=== PATIENT | female | born 1945 | race Caucasian/White ===

== ENCOUNTER 2024-11-13 10:57 | Inpatient (IN) ==
[2024-11-13] MEDS ORDERED: ZANAFLEX PO PRN (13:57)
[2024-11-13] MEDS ORDERED: XOPENEX 1.25 MG/3 ML NEBULE NEB PRN (13:57)
[2024-11-13] MEDS ORDERED: AMBIEN PO PRN (13:57)
[2024-11-13] MEDS: PEPCID TAB 20 MG PO SCH (14:00)
[2024-11-13 15:58] VITALS: BMI 35.2
[2024-11-13] MEDS: LASIX PO SCH (17:55)
[2024-11-13] MEDS: AMARYL TAB 4 MG PO SCH (17:55)
--- NOTE | 2024-11-13 19:24 | PT/OTEVAL ---
PT/OT OBJECTIVES - HISTORY Prescription: OT Consult Diagnosis: Weakness, acute renal failure. Precautions: Fall risk PMH: HTN, CAD, DM, CKD, breast cancer. Prior Level of Function: Independent Other: Per pt report, pt lives alone in a 1 story home with 2 steps and no HR. Pt is (I) with ADLs and IADLs. Pt has 4 children who take turns to check in on her. DME includes rollator, RW and a potty chair. History of Present Illness: Pt is a 79 year old female who came to this hospital for swingbed. Per documentation pt was initially admitted to [facility] due to family calling EMS because she was having weakness and a fever, secondary to AMS, weakness, acute on Chronic kidney injury and rhabdomyolysis. Pt fell in her home in September and has some reported broken ribs as well as facial fx for which she is suppost to follow up with a dr in [place]. Caregiver arrived in the morning and pt did not answer the door, family was called to let them in. Upon entering the home pt was found sitting on the metal bed frame. Daughter stated that her mother told her the mattress slipped when she was getting up and she slid on to the frame. Denies falling. It is unknown for how long she has been on the frame, but it was at least 12 hours. Daughter reports she was fine the day before as she was shelling peanuts. Pt came to this hospital for swingbed, as she continues to be weak and needs rehab to improve (I) and safety for returning home alone. - COGNITION Mental Status: Alert, Name Communication Status: Verbal Ability to Follow Directions: 2 Step Affect: Calm - PAIN back pain Pain Scale: Moderate Comments: When sitting on commode. - BED MOBILITY Rolling: Minimal Scooting: Minimal - TRANSFERS Supine to Sit: Minimal Sit to Stand: Minimal, Moderate Sit to Stand Comment: mod A from commode. Sit or Stand Pivot: Minimal Toileting: Minimal Toileting comment: min A for clothing management. Safety (requires cues for:): Hand Placement Precaution - ADL'S Upper Body ADL: Minimum Lower Body ADL: Moderate Toileting: Minimum Bathing: Moderate Hygeine: Minimum - BALANCE Dynamic Sitting: Good Standing: Fair Balance Comment: F with UE support Static Sitting: Good Standing: Fair Balance Comment: F+ with UE support - NEUROMOTOR/SENSATION Qamar. Upper Ext Sensation: WFL Coordination: WFL - ROM Bilateral UE ROM: WFL - STRENGTH Bilateral UE Strength Number: 3 Other comment: 3+/5 - GAIT Pt. ambulates how many feet?: 100 - TREATMENT Date: 11/13/24 Time: 15:00 Treatment Type: Evaluation Treatment Provided: Therapeutic Activities, Other - TOTAL TREATMENT TIME Total Time: 45 - POST ASSESSMENT Post Assessment Comment: Pt was seen for skilled OT to assess CLOF. Pt was agreeable to participate and able to provide PLOF and hx. Pt requires min A for STS and bed mobility with touch A for AMB with RW and min VC for safety. Pt required touch A for toilet hygiene and min A for clothing management. Pt functionally AMB ~ 100 feet with RW touch A wiht min VC for safety. Pt given time for all tasks. Pt wanted to get back in the bed with min A. Pt had all needs met and call light within reach. Pt demonstrates deficits with ADLs and ADL functional mobility. Pt would benefit from skilled OT services to address ADL deficits to facilitate highest level of ADL function needed for safe d/c planning. - EXIT DISPOSITION Exit Position: BED Call light in reach: Yes PT/OT ASSESSMENT - OT Problem List: Decreased Mobility ADL's, Decreased Safety Aware, Decreased Dressing, Decreased Bathing, Decreased Grooming, Decreased UE Strength, Other - OT GOALS Physical Therapy Technician Goals Days: 20 Mobility for ADL's: Pt to improve functional ADL transfers to set up A and LRAD Safety Awareness: Pt to improve safety awareness to G Dressing: Pt to improve LB dressing to set up A Bathing: Pt to improve overall bathing to set up A Upper Ext. Strength/Use: Pt to improve MMT in BUE by 1 grade Short Term Goals Days: 10 Mobility for ADL's: Pt to improve functional ADL transfers to supv A and LRAD Safety Awareness: Pt to improve safety awareness to F+ Dressing: Pt to improve LB dressing to supv A Bathing: Pt to improve overall bathing to supv A Other: Pt to improve FAT to G - PATIENT GOALS Patient/Family Goals: To go home and feel better Goals Discussed with Patient/Family: Yes Rehabilitation Potential: G to meet stated goals Justification for Potential: To facilitate highest level of ADL function needed for safe d/c planning. Weakness and Barriers: Pain - PLAN Suggested Treatment Plan: Therapeutic Activity, Self Care Training, Neuro Re- education, Therapeutic Ex with HEP, Patient Education, Family Education - FREQUENCY AND DURATION OT: 4x a week for 20 days Expected Continuation of Care at Discharge: Determined on Progress
--- NOTE | 2024-11-13 19:56 | PT/OTEVAL ---
PT/OT OBJECTIVES - HISTORY Prescription: PT Consult Diagnosis: Acute on Chronic Renal Failure, Weakness Precautions: Fall Risk, Decreased Safety Awareness PMH: HTN, CAD, DM, CKD, Hx Breast Cancer, Falls, Hx Coronary Stents Other: Per patient report (no family present in room at time of evaluation): Pt resides at home alone in single story home with 2 steps to enter without a handrail. Pt reports that prior to a fall in September she was independent with all mobility tasks using FWW or rollator as needed "depending on where I'm walking". Pt reports that she has O2 and uses it as needed. Pt reports that she had a fall in September resulting in multiple L rib fractures and L eye fracture and since then her children (4) have been checking in on her frequently. History of Present Illness: Ms. Rivera is a 79 year old female who presented to [facility] ER on 11/09/2024 with chief complaint of weakness after being found at home on metal bed frame and was found to be in renal failure and with rhabdomyolysis. Pt was stabilized medically and unable to safely return home so was transferred to [facility] on the afternoon of 11/13/2024 for swing bed rehab program. - COGNITION Mental Status: Alert, Oriented, Name, Date Communication Status: Verbal Ability to Follow Directions: 2 Step - PAIN back pain Pain Scale: Moderate Comments: When sitting on commode. - BED MOBILITY Rolling: Minimal - TRANSFERS Supine to Sit: Minimal Sit to Stand: Minimal Sit or Stand Pivot: Minimal Safety (requires cues for:): Hand Placement Precaution - BALANCE Dynamic Sitting: Good Standing: Fair Balance Comment: Fair- Static Sitting: Good Standing: Poor - ROM Bilateral LE ROM: WFL Muscle Tone: WFL - STRENGTH Bilateral LE Strength Number: 3 Other comment: 3+/5 - GAIT Pt. ambulates how many feet?: 100 Amount of Assistance Required: Minimal Type of Assistive Device: Rolling Walker - TREATMENT Date: 11/13/24 Time: 17:15 Treatment Type: Evaluation Treatment Provided: Therapeutic Activities - TOTAL TREATMENT TIME Total Time: 45 - POST ASSESSMENT Post Assessment Comment: Pt was found supine in bed in room and agreeable to participation in PT services. Pt was able to provide history and PLOF information. Pt without complaints of pain at rest but was noted with back pain following prolonged sitting on commode. Pt required min assist for bed mobility tasks and functional transfers. Pt able to ambulate for 100ft with FWW and min assist- cues for upright posture and proper foot placement. Pt ambulated on room air and SpO2 noted to be 97%. Review of PT POC and goals. Pt requested to return to bed following session due to being tired. Pt would benefit from continued participation in PT services to address remaining deficits and facilitate highest level of function and safe discharge planning. - EXIT DISPOSITION Exit Position: BED Call light in reach: Yes Bed Alarm On: YES PT/OT ASSESSMENT - PT Problem List: Decreased Bed Mobility, Decreased Transfers, Decreased Gait, Decreased Balance, Decreased Safety, Decreased LE Strength - PT GOALS Short Term Goals Days: 10 Mobility: Pt will peform bed mobility tasks with supervision Transfers: Pt will perform functional transfers with supervision Gait: Pt will ambulate 300ft with FWW with supervision Balance: Pt will increase static standing balance to good Speech Language Specialist Goals Days: 20 Mobility: Pt will perform bed mobility tasks with mod I Transfers: Pt will perform functional transfers with mod I Gait: Pt will ambulate 500ft with rollator with mod I Balance: Pt will increase dynamic standing balance to good ROM/Strength: Pt will increase BLE strength to 5/5 Others: Pt will ascend/descend 2 steps with mod I - OT GOALS Mcc Goals Days: 20 Mobility for ADL's: Pt to improve functional ADL transfers to set up A and LRAD Safety Awareness: Pt to improve safety awareness to G Dressing: Pt to improve LB dressing to set up A Bathing: Pt to improve overall bathing to set up A Upper Ext. Strength/Use: Pt to improve MMT in BUE by 1 grade Short Term Goals Days: 10 Mobility for ADL's: Pt to improve functional ADL transfers to supv A and LRAD Safety Awareness: Pt to improve safety awareness to F+ Dressing: Pt to improve LB dressing to supv A Bathing: Pt to improve overall bathing to supv A Other: Pt to improve FAT to G - PATIENT GOALS Patient/Family Goals: "I want to go home" Goals Discussed with Patient/Family: Yes Rehabilitation Potential: Good to meet stated goals Justification for Potential: Facilitate highest level of function and safe discharge planning - PLAN Suggested Treatment Plan: Bed Mobility Training, Therapeutic Activity, Gait Training, Neuro Re-education, Therapeutic Ex with HEP, Patient Education, Family Education, Other Other comment: Manual Therapy - FREQUENCY AND DURATION PT: 5x per week x 20 days Expected Continuation of Care at Discharge: Home Health
[2024-11-13] MEDS: ZETIA TAB 10 MG PO SCH (20:40)
[2024-11-13] MEDS: LOPRESSOR TAB 50 MG PO SCH (20:40)
[2024-11-13] MEDS: SINGULAIR TAB 10 MG PO SCH (20:40)
[2024-11-13] MEDS: PREDNISONE TAB 10 MG PO SCH (20:40)
[2024-11-13] MEDS: SNACK - Diabetic Appropriate PO SCH (20:41)
[2024-11-13] MEDS: VIBRAMYCIN PO SCH (20:41)
[2024-11-13] MEDS: ZOCOR TAB 20 MG PO SCH (20:41)
[2024-11-14] MEDS: PERCOCET TAB 5/325 MG PO PRN (01:24)
[2024-11-14 05:51] LABS: RED CELL DISTRIBUTION WIDTH 13.1 % (11.6-16.5)
[2024-11-14 05:59] LABS: MEAN PLATELET VOLUME 9.6 fL (7.4-11.0)
[2024-11-14 06:05] LABS: COR CA(FOR HYPOALB) 9.9 mg/dL (8.5-10.1); COR NA(FOR HYPERGLY) 144.0 mmol/L (136-145); CREATININE 1.13 mg/dL (0.55-1.02); eGFR NON BLACK RACES 49.0 (>60)
[2024-11-14 07:20] LABS: BASOPHILS % (MANUAL) 0 % (0-1); METAMYELOCYTES % 1; PLATELET MORPHOLOGY COMMENT NORMAL (NORMAL)
[2024-11-14] MEDS ORDERED: CONSULT PHARMACY - POTASSIUM & MAGNESIUM XX SCH (08:00)
[2024-11-14] MEDS: ASPIRIN EC 81 MG PO SCH (08:44)
[2024-11-14] MEDS: ARIMIDEX PO SCH (08:44)
[2024-11-14] MEDS: APRESOLINE TAB 25 MG PO SCH (08:45)
[2024-11-14] MEDS: COZAAR PO SCH (08:45)
[2024-11-14] MEDS: NORVASC TAB 10 MG PO SCH (08:45)
[2024-11-14] MEDS: K-DUR TAB 20 MEQ PO SCH (08:46)
[2024-11-14] MEDS: MYRBETRIQ ER TAB 25 MG PO SCH (08:47)
[2024-11-14] MEDS: FARXIGA PO SCH (09:10)
[2024-11-14] MEDS: COLACE CAP 100 MG PO PRN (09:34)
[2024-11-14] MEDS: MILK OF MAGNESIA PO PRN (09:34)
[2024-11-14] MEDS: NovoLIN R (or HumuLIN R) SUBCUT PRN (17:22)
[2024-11-14] MEDS: SNACK - Diabetic Appropriate PO SCH (23:31)
--- NOTE | 2024-11-15 08:58 | DR.H&P ---
H&P History & Physical for Day of: H&P Date: 11/14/24 Chief Complaint Chief Complaint: weakness History of Present Illness History of Present Illness: Patient is a 79-year-old female admitted as a swing bed for weakness and falls. This morning she is resting comfortably in bed. No acute events overnight. Labs/imaging: WBC 8.8, hemoglobin 14.6, platelets 220, sodium 143, potassium 3.8, creatinine 1.13, glucose 146. Reviewed home medications and will restart. Physical therapy has been ordered and patient is working with them. Otherwise continue with current treatment plan. Continue to closely monitor and follow-up labs. Family History Family Medical History: Cancer and Coronary Artery Disease Medications Home Medications: Home Medications Medication Instructions Recorded Confirmed Type amlodipine 10 mg tablet 10 mg PO HS 11/13/24 5 History anastrozole 1 mg tablet 1 mg PO QDAY 11/13/24 History dapagliflozin propanediol 10 mg 10 mg PO QDAY 11/13/24 11/13/24 History tablet (Farxiga) ezetimibe 10 mg tablet 10 mg PO .DINNER 11/13/24 History famotidine 20 mg tablet 20 mg PO QDAY 11/13/2411/13 History furosemide 20 mg tablet 20 mg PO BID 11/13/24 History glimepiride 2 mg tablet 2 mg PO BID 11/13/24 5 History hydralazine 25 mg tablet 25 mg PO DAILY 11/13/2410/27 History lidocaine 5 % topical patch 1 patch topical QDAY 11/1311/13/24 History losartan 100 mg tablet 100 mg PO QDAY 11/13/2410/27 History metoprolol tartrate 50 mg tablet 50 mg PO BID 11/13/24 11/13/24 History mirabegron 25 mg tablet,extended 25 mg PO QDAY 5 11/13/24 History release 24 hr (Myrbetriq) montelukast 10 mg tablet 10 mg PO HS 11/13/24 5 History oxycodone-acetaminophen 10 mg-325 1 tab PO Q6H PRN 11/13/24 History mg tablet semaglutide 1 mg/dose (4 mg/3 mL) 1 mg subcut WEEKLY 0 11/13/24 11/13/24 History subcutaneous pen injector (Ozempic) simvastatin 40 mg tablet 40 mg PO QPM 11/13/24 History tizanidine 4 mg tablet 4 mg PO TID PRN 11/13/24 History zolpidem 5 mg tablet 5 mg PO QPM PRN 11/13/24 History Allergies Allergies Allergy/AdvReac Type Severity Reaction Status Date / Time apixaban (From Eliquis) Allergy Unknown Verified 11/13/24 14:04 ketorolac (From Toradol) Allergy Unknown Verified 11/13/24 14:04 niacin Allergy Unknown Verified 11/13/24 14:04 promethazine (From Phenergan) Allergy Unknown Verified 11/13/24 14:04 Labs 11/14/24 05:20 11/14/24 05:20 Labs: Laboratory WBC 8.8 X10^3/uL (3.6-10.0) 11/14/24 05:20 RBC 4.84 X10^6/uL (3.5-5.4) 11/14/24 05:20 Hgb 14.6 g/dL (12.0-16.0) 11/14/24 05:20 Hct 42.5 % (36.0-47.0) 11/14/24 05:20 MCV 87.7 fL (80.0-100.0) 11/14/24 05:20 MCH 30.1 pg (27.0-34.0) 11/14/24 05:20 MCHC 34.4 g/dL (33.0-35.0) 11/14/24 05:20 RDW 13.1 % (11.6-16.5) 11/14/24 05:20 Plt Count 220 X10^3/uL (150.0-450.0) 11/14/24 05:20 Plt Count Comment Adequate (ADEQUATE) 11/14/24 05:20 MPV 9.6 fL (7.4-11.0) 11/14/24 05:20 Neut % (Auto) 81.2 % (42.0-75.0) H 11/14/24 05:20 Lymph % (Auto) 13.3 % (21.0-51.0) L 11/14/24 05:20 [place] % (Auto) 5.2 % (0.0-13.0) 11/14/24 05:20 Eos % (Auto) 0.1 % (0.9-2.9) L 11/14/24 05:20 Baso % (Auto) 0.2 % (0.2-1.0) 11/14/24 05:20 Neut # (Auto) 7.1 x10^3/uL (2.2-4.8) H 11/14/24 05:20 Lymph # (Auto) 1.2 X10^3/uL (1.3-2.9) L 11/14/24 05:20 [place] # (Auto) 0.5 x10^3/uL (0.3-0.8) 11/14/24 05:20 Eos # (Auto) 0.0 x10^3/uL (0.0-0.2) 11/14/24 05:20 Baso # (Auto) 0.0 X10^3/uL (0.0-0.1) 11/14/24 05:20 Absolute Nucleated RBC 0.0 /100WBC 11/14/24 05:20 Total Counted 100 11/14/24 05:20 Neutrophils % (Manual) 86 % (39-76) H 11/14/24 05:20 Lymphocytes % (Manual) 11 % (13-43) L 11/14/24 05:20 Monocytes % (Manual) 2 % (4-9) L 11/14/24 05:20 Eosinophils % (Manual) 0 % (0-6) 11/14/24 05:20 Basophils % (Manual) 0 % (0-1) 11/14/24 05:20 Metamyelocytes % 1 11/14/24 05:20 Plt Morphology Comment Normal (NORMAL) 11/14/24 05:20 RBC Morphology Normal (NORMAL) 11/14/24 05:20 Sodium 143 mmol/L (136-145) 11/14/24 05:20 Corrected Sodium 144 mmol/L (136-145) 11/14/24 05:20 Potassium 3.8 mmol/L (3.5-5.1) 11/14/24 05:20 Chloride 102 mmol/L (98-107) 11/14/24 05:20 Carbon Dioxide 35.6 mmol/L (21-32) H 11/14/24 05:20 BUN 37 mg/dL (7-18) H 11/14/24 05:20 Creatinine 1.13 mg/dL (0.55-1.02) H 11/14/24 05:20 Est GFR (MDRD) Af Amer 60 (>60) 11/14/24 05:20 Est GFR (MDRD) Non-Af 49 (>60) L 11/14/24 05:20 Glucose 146 mg/dL (65-99) H 11/14/24 05:20 POC Glucose (mg/dL) 75 mg/dL (65-99) 11/15/24 05:43 Calcium 9.0 mg/dL (8.5-10.1) 11/14/24 05:20 Corrected Calcium 9.9 mg/dL (8.5-10.1) 11/14/24 05:20 Total Bilirubin 0.80 mg/dL (0.2-1.0) 11/14/24 05:20 AST 108 Units/L (15-37) H 11/14/24 05:20 ALT 102 Units/L (12-78) H 11/14/24 05:20 Alkaline Phosphatase 87 Units/L (46-116) 11/14/24 05:20 Total Protein 6.3 g/dL (6.4-8.2) L 11/14/24 05:20 Albumin 2.9 g/dL (3.4-5.0) L 11/14/24 05:20 Globulin 3.4 g/dL (2.5-4.5) 11/14/24 05:20 Albumin/Globulin Ratio 0.9 Ratio (1.1-2.1) L 11/14/24 05:20 Review of Systems Constitutional: Weakness Eyes: No Symptoms Reported ENT: No Symptoms Reported Respiratory: No Symptoms Reported Cardiovascular: No Symptoms Reported Gastrointestinal: No Symptoms Reported Genitourinary: No Symptoms Reported Musculoskeletal: No Symptoms Reported Skin: No Symptoms Reported Neurological: No Symptoms Reported Physical Exam Vital Signs: Vital Signs Temperature 98.3 F Pulse Rate [Bilateral Radial] 66 Respiratory Rate 18 Blood Pressure [Right Arm] 119/63 O2 Sat by Pulse Oximetry 95 Oriented: Normal Eyes: Normal Ear: Normal Nose: Normal Throat: Normal Respiratory: Clear Throughout Cardiovascular: Normal : Normal Auscultation: Bowel Sounds: Normal Palpation: Normal Tenderness: Normal Skin: Normal Musculoskeletal: Normal Psychiatric: Normal Mood Description: Calm and Appropriate Affect: Normal Speech Pattern: Clear and Appropriate Assessment/Plan (1) Weakness: Status: Acute Plan: Continue PT (2) Falls: Status: Acute Review H&P Reviewed: Yes Patient was examined?: Yes
[2024-11-17 05:36] LABS: MEAN PLATELET VOLUME 9.2 fL (7.4-11.0); RED CELL DISTRIBUTION WIDTH 13.6 % (11.6-16.5)
[2024-11-17 05:49] LABS: COR CA(FOR HYPOALB) 9.8 mg/dL (8.5-10.1); COR NA(FOR HYPERGLY) 144.0 mmol/L (136-145); CREATININE 1.13 mg/dL (0.55-1.02); eGFR NON BLACK RACES 49.0 (>60)
[2024-11-17 06:16] LABS: BAND NEUTROPHILS % 1 % (0-10)
[2024-11-17 06:17] LABS: PLATELET MORPHOLOGY COMMENT NORMAL (NORMAL)
[2024-11-17] MEDS ORDERED: CONSULT PHARMACY - POTASSIUM & MAGNESIUM XX SCH (07:00)
[2024-11-17] MEDS: K-DUR TAB 20 MEQ PO SCH (08:33)
--- NOTE | 2024-11-17 09:34 | PCM.PROG ---
Progress Note Progress Note for Day of Date of Exam: 11/17/24 Subjective Subjective: Patient seen at bedside, no acute events overnight. She is currently admitted as swing bed for generalized weakness. She has been doing well, working with PT/OT. She has been ambulating with a walker. Labs/imaging reviewed: -WBC 10.8 Hgb 15.2 K 3.6 Cr 1.13 - AST/ALT 89/87 Plan: continue swing bed status, PT/OT as tolerated. Continue home medications. Fall precautions. Replace electrolytes as per protocol. CM to check on last day of swing bed. Monitor labs prn. Past Medical Family Social History Allergies: Allergies apixaban (From Eliquis) Allergy (Unknown, Verified 11/13/24 14:04) ketorolac (From Toradol) Allergy (Unknown, Verified 11/13/24 14:04) niacin Allergy (Unknown, Verified 11/13/24 14:04) promethazine (From Phenergan) Allergy (Unknown, Verified 11/13/24 14:04) Vital Signs and I&O's Vital Signs: Vital Signs Temperature 98 F Pulse Rate [Bilateral Radial] 57 Respiratory Rate 19 Blood Pressure [Right Arm] 136/69 O2 Sat by Pulse Oximetry 95 Intake and Output: Intake & Output 11/14/24 11/15/24 11/16/24 11/17/24 23:59 23:59 23:59 23:59 Intake Total 500 / 500 790 / 790 2140 / 2140 120 / 120 Balance 500 / 500 790 / 790 2140 / 2140 120 / 120 Physical Exam Oriented: Normal Eyes: Normal Ear: Normal Nose: Normal Throat: Normal Cardiovascular: Normal Auscultation: Bowel Sounds: Normal Palpation: Normal Tenderness: Normal Skin: Normal Musculoskeletal: Normal Psychiatric: Normal Mood Description: Calm and Appropriate Affect: Normal Speech Pattern: Clear and Appropriate Laboratory and Diagnostics 11/17/24 05:25 11/17/24 05:25 Labs: Laboratory WBC 10.8 X10^3/uL (3.6-10.0) H 11/17/24 05:25 RBC 5.06 X10^6/uL (3.5-5.4) 11/17/24 05:25 Hgb 15.2 g/dL (12.0-16.0) 11/17/24 05:25 Hct 44.6 % (36.0-47.0) 11/17/24 05:25 MCV 88.2 fL (80.0-100.0) 11/17/24 05:25 MCH 30.1 pg (27.0-34.0) 11/17/24 05:25 MCHC 34.2 g/dL (33.0-35.0) 11/17/24 05:25 RDW 13.6 % (11.6-16.5) 11/17/24 05:25 Plt Count 196 X10^3/uL (150.0-450.0) 11/17/24 05:25 Plt Count Comment Adequate (ADEQUATE) 11/17/24 05:25 MPV 9.2 fL (7.4-11.0) 11/17/24 05:25 Neut % (Auto) 84.3 % (42.0-75.0) H 11/17/24 05:25 Lymph % (Auto) 10.8 % (21.0-51.0) L 11/17/24 05:25 [place] % (Auto) 4.3 % (0.0-13.0) 11/17/24 05:25 Eos % (Auto) 0.1 % (0.9-2.9) L 11/17/24 05:25 Baso % (Auto) 0.5 % (0.2-1.0) 11/17/24 05:25 Neut # (Auto) 9.1 x10^3/uL (2.2-4.8) H 11/17/24 05:25 Lymph # (Auto) 1.2 X10^3/uL (1.3-2.9) L 11/17/24 05:25 [place] # (Auto) 0.5 x10^3/uL (0.3-0.8) 11/17/24 05:25 Eos # (Auto) 0.0 x10^3/uL (0.0-0.2) 11/17/24 05:25 Baso # (Auto) 0.1 X10^3/uL (0.0-0.1) 11/17/24 05:25 Absolute Nucleated RBC 0.0 /100WBC 11/17/24 05:25 Total Counted 100 11/17/24 05:25 Neutrophils % (Manual) 89 % (39-76) H 11/17/24 05:25 Band Neutrophils % 1 % (0-10) 11/17/24 05:25 Lymphocytes % (Manual) 8 % (13-43) L 11/17/24 05:25 Monocytes % (Manual) 2 % (4-9) L 11/17/24 05:25 Eosinophils % (Manual) 0 % (0-6) 11/14/24 05:20 Basophils % (Manual) 0 % (0-1) 11/14/24 05:20 Metamyelocytes % 1 11/14/24 05:20 Plt Morphology Comment Normal (NORMAL) 11/17/24 05:25 RBC Morphology Normal (NORMAL) 11/17/24 05:25 Sodium 143 mmol/L (136-145) 11/17/24 05:25 Corrected Sodium 144 mmol/L (136-145) 11/17/24 05:25 Potassium 3.6 mmol/L (3.5-5.1) 11/17/24 05:25 Chloride 100 mmol/L (98-107) 11/17/24 05:25 Carbon Dioxide 40.0 mmol/L (21-32) H 11/17/24 05:25 BUN 33 mg/dL (7-18) H 11/17/24 05:25 Creatinine 1.13 mg/dL (0.55-1.02) H 11/17/24 05:25 Est GFR (MDRD) Af Amer 60 (>60) 11/17/24 05:25 Est GFR (MDRD) Non-Af 49 (>60) L 11/17/24 05:25 Glucose 128 mg/dL (65-99) H 11/17/24 05:25 POC Glucose (mg/dL) 123 mg/dL (65-99) H 11/17/24 06:28 Calcium 9.0 mg/dL (8.5-10.1) 11/17/24 05:25 Corrected Calcium 9.8 mg/dL (8.5-10.1) 11/17/24 05:25 Magnesium 2.3 mg/dL (2.0-2.9) 11/17/24 05:25 Total Bilirubin 0.90 mg/dL (0.2-1.0) 11/17/24 05:25 AST 39 Units/L (15-37) H 11/17/24 05:25 ALT 87 Units/L (12-78) H 11/17/24 05:25 Alkaline Phosphatase 80 Units/L (46-116) 11/17/24 05:25 Total Protein 6.2 g/dL (6.4-8.2) L 11/17/24 05:25 Albumin 3.0 g/dL (3.4-5.0) L 11/17/24 05:25 Globulin 3.2 g/dL (2.5-4.5) 11/17/24 05:25 Albumin/Globulin Ratio 0.9 Ratio (1.1-2.1) L 11/17/24 05:25 Plan (1) Weakness: Status: Acute Plan: Continue PT (2) Falls: Status: Acute (3) HTN (hypertension): Status: Chronic (4) Type 2 diabetes mellitus: Status: Chronic
--- NOTE | 2024-11-17 12:32 | SP.EVAL ---
SPEECH EVALUATION - History Prescription: ST Consult Diagnosis: Weakness, Acute Renal Failure Precautions: Falls PMH: HTN, CAD, DM, CKD, breast cancer Prior Level of Function: Independent - Cognition Mental Status: Alert, Name, Place, Purpose Ability to Follow Directions: 2 Step Memory Loss: Short term memory loss - Communication Status Communication Status: Verbal - Oral/Motor Examination Swallowing: No Impairments Swallowing: Regular diet with thin liquids, no reported or documented history of dysphagia. - Speech Goals Correction Goals Others: Cognitive/Communication Short Term Goals Others: Cognitive/Communication - Assessment Goals discussed with family?: Yes (Pt's daughter was present for half of the evaluation) - Rehabilitation Rehabilitation Potential: Good given cooperation and family support - Suggested Treatment Plan Suggested Treatment: Speech/Hearing Therapy - Discharge Plan Comments: Pt seen at bedside for cognitive/communication assessment, pt was cooperative and pleasant. Pt obtained a score of 15/30 on the SLUMS, indicative of a moderate cognitive/communication impairment characterized by decreased orientation and short-term recall, high-level judgement and reasoning. SHORT- TERM Goals: 1). Pt will be Ox4 with visual cues 2). Pt will recall specific information with an increasing delay (up to 15 minutes) in order to improve functional memory. 3). Pt will demonstrate functional problem-solving 80% of the time in order to improve environmental and personal safety. LONG-TERM Goal: Pt will improve overall cognitive abilities in order to increase the likelihood of safe return to home and community living.
[2024-11-19 06:15] LABS: MEAN PLATELET VOLUME 9.8 fL (7.4-11.0); RED CELL DISTRIBUTION WIDTH 13.5 % (11.6-16.5)
[2024-11-19 06:31] LABS: COR CA(FOR HYPOALB) 9.9 mg/dL (8.5-10.1); COR NA(FOR HYPERGLY) 145.0 mmol/L (136-145); CREATININE 1.19 mg/dL (0.55-1.02); eGFR NON BLACK RACES 47.0 (>60)
[2024-11-19 07:00] LABS: BAND NEUTROPHILS % 1 % (0-10); PLATELET MORPHOLOGY COMMENT NORMAL (NORMAL)
[2024-11-19] MEDS ORDERED: CONSULT PHARMACY - POTASSIUM & MAGNESIUM XX SCH (07:00)
[2024-11-19] MEDS: K-DUR TAB 20 MEQ PO ONE (08:46)
--- NOTE | 2024-11-19 10:23 | PCM.PROG ---
Progress Note Progress Note for Day of Date of Exam: 11/19/24 Subjective Subjective: Patient seen at bedside, no acute events overnight. She is doing well. She is currently admitted as swing bed for generalized weakness. She has been working with PT/OT. She has been ambulating with a walker. Labs/imaging reviewed: -WBC 10.3 Hgb 14.0 K 3.5 Cr 1.19 Plan: continue swing bed status, PT/OT as tolerated. Continue home medications. Fall precautions. Replace electrolytes as per protocol. Monitor labs prn. Past Medical Family Social History Allergies: Allergies apixaban (From Eliquis) Allergy (Unknown, Verified 11/13/24 14:04) ketorolac (From Toradol) Allergy (Unknown, Verified 11/13/24 14:04) niacin Allergy (Unknown, Verified 11/13/24 14:04) promethazine (From Phenergan) Allergy (Unknown, Verified 11/13/24 14:04) Vital Signs and I&O's Vital Signs: Vital Signs Temperature 97.9 F Pulse Rate [Bilateral Radial] 56 Respiratory Rate 18 Blood Pressure [Right Arm] 127/58 O2 Sat by Pulse Oximetry 94 Intake and Output: Intake & Output 11/16/24 11/17/24 11/18/24 11/19/24 23:59 23:59 23:59 23:59 Intake Total 2140 / 2140 420 / 420 440 / 440 50 / 50 Balance 2140 / 2140 420 / 420 440 / 440 50 / 50 Physical Exam Oriented: Normal Eyes: Normal Ear: Normal Nose: Normal Throat: Normal Respiratory: Normal Cardiovascular: Normal Auscultation: Bowel Sounds: Normal Palpation: Normal Tenderness: Normal Skin: Normal Musculoskeletal: Normal Psychiatric: Normal Mood Description: Calm and Appropriate Affect: Normal Speech Pattern: Clear and Appropriate Laboratory and Diagnostics 11/19/24 05:27 11/19/24 05:27 Labs: Laboratory WBC 10.3 X10^3/uL (3.6-10.0) H 11/19/24 05:27 RBC 4.62 X10^6/uL (3.5-5.4) 11/19/24 05:27 Hgb 14.0 g/dL (12.0-16.0) 11/19/24 05:27 Hct 40.9 % (36.0-47.0) 11/19/24 05:27 MCV 88.5 fL (80.0-100.0) 11/19/24 05:27 MCH 30.2 pg (27.0-34.0) 11/19/24 05:27 MCHC 34.2 g/dL (33.0-35.0) 11/19/24 05:27 RDW 13.5 % (11.6-16.5) 11/19/24 05:27 Plt Count 216 X10^3/uL (150.0-450.0) 11/19/24 05:27 Plt Count Comment Adequate (ADEQUATE) 11/19/24 05:27 MPV 9.8 fL (7.4-11.0) 11/19/24 05:27 Neut % (Auto) 84.0 % (42.0-75.0) H 11/19/24 05:27 Lymph % (Auto) 10.9 % (21.0-51.0) L 11/19/24 05:27 [place] % (Auto) 4.9 % (0.0-13.0) 11/19/24 05:27 Eos % (Auto) 0.0 % (0.9-2.9) L 11/19/24 05:27 Baso % (Auto) 0.2 % (0.2-1.0) 11/19/24 05:27 Neut # (Auto) 8.7 x10^3/uL (2.2-4.8) H 11/19/24 05:27 Lymph # (Auto) 1.1 X10^3/uL (1.3-2.9) L 11/19/24 05:27 [place] # (Auto) 0.5 x10^3/uL (0.3-0.8) 11/19/24 05:27 Eos # (Auto) 0.0 x10^3/uL (0.0-0.2) 11/19/24 05:27 Baso # (Auto) 0.0 X10^3/uL (0.0-0.1) 11/19/24 05:27 Absolute Nucleated RBC 0.1 /100WBC 11/19/24 05:27 Total Counted 100 11/19/24 05:27 Neutrophils % (Manual) 85 % (39-76) H 11/19/24 05:27 Band Neutrophils % 1 % (0-10) 11/19/24 05:27 Lymphocytes % (Manual) 12 % (13-43) L 11/19/24 05:27 Monocytes % (Manual) 2 % (4-9) L 11/19/24 05:27 Eosinophils % (Manual) 0 % (0-6) 11/14/24 05:20 Basophils % (Manual) 0 % (0-1) 11/14/24 05:20 Metamyelocytes % 1 11/14/24 05:20 Plt Morphology Comment Normal (NORMAL) 11/19/24 05:27 RBC Morphology Normal (NORMAL) 11/19/24 05:27 Sodium 144 mmol/L (136-145) 11/19/24 05:27 Corrected Sodium 145 mmol/L (136-145) 11/19/24 05:27 Potassium 3.5 mmol/L (3.5-5.1) 11/19/24 05:27 Chloride 101 mmol/L (98-107) 11/19/24 05:27 Carbon Dioxide 36.8 mmol/L (21-32) H 11/19/24 05:27 BUN 40 mg/dL (7-18) H 11/19/24 05:27 Creatinine 1.19 mg/dL (0.55-1.02) H 11/19/24 05:27 Est GFR (MDRD) Af Amer 56 (>60) L 11/19/24 05:27 Est GFR (MDRD) Non-Af 47 (>60) L 11/19/24 05:27 Glucose 141 mg/dL (65-99) H 11/19/24 05:27 POC Glucose (mg/dL) 155 mg/dL (65-99) H 11/19/24 05:26 Calcium 8.9 mg/dL (8.5-10.1) 11/19/24 05:27 Corrected Calcium 9.9 mg/dL (8.5-10.1) 11/19/24 05:27 Magnesium 2.1 mg/dL (2.0-2.9) 11/19/24 05:27 Total Bilirubin 0.80 mg/dL (0.2-1.0) 11/19/24 05:27 AST 22 Units/L (15-37) 11/19/24 05:27 ALT 56 Units/L (12-78) 11/19/24 05:27 Alkaline Phosphatase 69 Units/L (46-116) 11/19/24 05:27 Total Protein 5.3 g/dL (6.4-8.2) L 11/19/24 05:27 Albumin 2.7 g/dL (3.4-5.0) L 11/19/24 05:27 Globulin 2.6 g/dL (2.5-4.5) 11/19/24 05:27 Albumin/Globulin Ratio 1.0 Ratio (1.1-2.1) L 11/19/24 05:27 Plan (1) Weakness: Status: Acute Plan: Continue PT (2) Falls: Status: Acute (3) HTN (hypertension): Status: Chronic Qualifiers: Hypertension type: primary hypertension Qualified Code(s): I10 - Essential (primary) hypertension (4) Type 2 diabetes mellitus: Status: Chronic
[2024-11-20 22:31] VITALS: PULSE 69; RESP 18; TEMP 98
[2024-11-21 06:19] LABS: MEAN PLATELET VOLUME 10.1 fL (7.4-11.0); RED CELL DISTRIBUTION WIDTH 13.5 % (11.6-16.5)
[2024-11-21 06:32] LABS: COR CA(FOR HYPOALB) 9.9 mg/dL (8.5-10.1); CREATININE 1.31 mg/dL (0.55-1.02); eGFR NON BLACK RACES 42 (>60)
[2024-11-21] MEDS: PEPCID TAB 20 MG PO SCH (08:35)
[2024-11-21 09:01] VITALS: BP 128/60; O2SAT 97
== END 2024-11-21 16:35 | disposition home health service (06) | DRG 683 ==
LOC: MED/SURG 13:35
PROVIDERS: ADMIT Internal Medicine; ATTEND Internal Medicine
DX: I12.9 Hypertensive chronic kidney disease with stage 1 through stage 4 chronic kidney disease, or unspecified chronic kidney disease; I25.10 Atherosclerotic heart disease of native coronary artery without angina pectoris; R41.841 Cognitive communication deficit; R26.89 Other abnormalities of gait and mobility; E11.65 Type 2 diabetes mellitus with hyperglycemia; N18.9 Chronic kidney disease, unspecified; Z51.89 Encounter for other specified aftercare; N17.8 Other acute kidney failure; R29.6 Repeated falls; R53.83 Other fatigue; M62.82 Rhabdomyolysis; R53.1 Weakness; R06.02 Shortness of breath; R74.01 Elevation of levels of liver transaminase levels